=== PATIENT | female | born 1970 | race Caucasian/White ===

== ENCOUNTER → 2024-06-11 | Day surgery (SDC) | payer MEDICAID ==
[~2024-06-11] VITALS: Ht 152.4 cm; Wt 69.4 kg
[~2024-06-11] MED LIST: ATOR40TA70 PO; BALANCED SALT IRRIG SOLN COMB1 500ML OP NR; CALC667C PO; DILT360C23 PO; DULA1.5P SQ; DUPI300S SQ; EPOE200014 IJ; FENTANYL CITRATE/PF 50MCG/ML 2ML VIAL ONE; GLIP10TA17 PO; HYALURONATE SODIUM 10MG/ML 0.55ML SYRINGE IO ONE; HYDR50TA40 PO; HYDROMORPHONE HCL/PF 1MG/ML INJ IV PRN; LABETALOL 5MG/ML 4ML INJ IV PRN; LEVO150T8 PO; MEPERIDINE HCL/PF 25MG/ML CPJ IV PRN; MIDAZOLAM HCL 2 MG/2 ML VIAL ONE; ONDANSETRON HCL 4MG/2ML INJ IV PRN; TRYPAN BLUE 0.5 ML DISP.SYRIN IO ONE; VALS320T16 PO; [UNRECOGNIZED DRUG - CODE] SQ
[2024-06-11 06:36] LABS: POTASSIUM 4.7 mEq/L (3.5-5.1)
[2024-06-11 06:38] LABS: CALCIUM 8.5 mg/dL (8.7-10.4)
[2024-06-11] MEDS: SODIUM CHLORIDE 0.9% 1,000 ML IV SCH (07:13)
== END | disposition home or self-care (01) ==
LOC: OR 05:59
PROVIDERS: ATTEND Ophthalmology
DX: E11.36 Type 2 diabetes mellitus with diabetic cataract (principal); H25.89 Other age-related cataract; I10 Essential (primary) hypertension; E78.5 Hyperlipidemia, unspecified; K21.9 Gastro-esophageal reflux disease without esophagitis; E03.9 Hypothyroidism, unspecified; Z86.2 Personal history of diseases of the blood and blood-forming organs and certain disorders involving the immune mechanism; Z90.710 Acquired absence of both cervix and uterus; Z98.890 Other specified postprocedural states; Z79.899 Other long term (current) drug therapy; Z88.0 Allergy status to penicillin
CPT/HCPCS: 66984; 80048; 36415; J3010; J2250; J3490; Q9957; V2632

== ENCOUNTER → 2024-08-21 | Day surgery (SDC) | payer MEDICAID ==
[~2024-08-21] VITALS: Ht 152.4 cm; Wt 70.3 kg
[~2024-08-21] MED LIST changes: +ACETYLCHOLINE CHLORIDE INTRAOCULAR SOLUTION 1:100 ELECTROLYTE DILUENT IO ONE; +CYCLOPENTOLATE HCL 1% OPHTH DROPS 2ML LEFTEYE NR; +GLYCOPYRROLATE 0.2MG/ML VIAL 5ML IV PRN; +HYDRALAZINE 20MG/ML VIAL IV PRN; -MEPERIDINE HCL/PF 25MG/ML CPJ IV PRN; +PHENYLEPHRINE HCL 10% OPHTH DROPS 5ML LEFTEYE NR; +TROPICAMIDE 1% OPHTH DROPS 15ML LEFTEYE NR
[2024-08-21] MEDS: SODIUM CHLORIDE 0.9% 1,000 ML IV SCH (12:20)
== END | disposition home or self-care (01) ==
LOC: OR 09:20
PROVIDERS: ATTEND Ophthalmology
DX: E11.36 Type 2 diabetes mellitus with diabetic cataract (principal); H25.89 Other age-related cataract; E78.5 Hyperlipidemia, unspecified; I12.9 Hypertensive chronic kidney disease with stage 1 through stage 4 chronic kidney disease, or unspecified chronic kidney disease; E11.22 Type 2 diabetes mellitus with diabetic chronic kidney disease; N18.30 Chronic kidney disease, stage 3 unspecified; K21.9 Gastro-esophageal reflux disease without esophagitis; Z86.2 Personal history of diseases of the blood and blood-forming organs and certain disorders involving the immune mechanism; Z90.710 Acquired absence of both cervix and uterus; Z98.890 Other specified postprocedural states; Z88.0 Allergy status to penicillin; Z79.899 Other long term (current) drug therapy
CPT/HCPCS: 67005; 82962; 66984; J3010; J2003; J2250; J3490; Q9957; V2632